=== PATIENT | male | born 1985 | race Caucasian/White ===

== ENCOUNTER 2017-03-16 17:45 | Emergency (ER) | payer OTHER ==
[~2017-03-16] VITALS: Ht 172.7 cm; Wt 106.3 kg
[2017-03-16 18:40] LABS: HEMATOCRIT 47.6 % (38.0-50.0); HEMOGLOBIN 16.2 G/DL (12.5-16.6); MCH 31.2 PG (29.0-34.0); MCV 91.7 FL (86-99); PLATELET COUNT 317 K/uL (156-360); RBC DIS.WIDTH-CV 12.3 % (11.8-14.6); RBC DIS.WIDTH-SD 41.4 % (39-53); RED BLOOD COUNT 5.19 M/uL (4.00-5.50)
[2017-03-16 18:49] LABS: CHLORIDE 104 mEq/L (99-109); SODIUM 139 mEq/L (136-147)
[2017-03-16 18:51] LABS: GLUCOSE 100 mg/dL (70-99)
[2017-03-16 18:55] LABS: CREATININE 1.2 mg/dL (0.6-1.3); GFR ESTIMATE (CALCULATED) > 59 mL/min/ (58.99-99999)
[2017-03-16 18:56] LABS: UREA NITROGEN (BUN) 12 mg/dL (9-23)
[2017-03-16 21:09] VITALS: BP 147/89
== END 2017-03-16 21:10 | disposition left against medical advice (07) ==
LOC: EME 17:45
DX: M54.5 Low back pain (principal); F12.90 Cannabis use, unspecified, uncomplicated; F17.200 Nicotine dependence, unspecified, uncomplicated
CPT/HCPCS: 71046; 80048; 85027; 99281; 99284